=== PATIENT | female | born 1975 | race Caucasian/White ===

== ENCOUNTER 2016-10-16 05:44 | Emergency (ER) | payer OTHER ==
[~2016-10-16] VITALS: Ht 157.5 cm; Wt 71.0 kg
[~2016-10-16 05:44] MED LIST: PREN-88 PO
[2016-10-16 06:38] LABS: BASOPHILS % 0.7 % (0.0-2.0); EOSINOPHILS % 0.9 % (0.0-5.0); HEMATOCRIT. 27.4 % (36.0-48.0); HEMOGLOBIN. 8.8 g/dL (12.0-16.0); LYMPHOCYTES % 35.8 % (20.0-50.0); MEAN CORPUSCULAR HEMOGLOBIN 24.4 pg (28.0-32.0); MEAN CORPUSCULAR VOLUME 76.3 fL (81.0-99.0); MEAN PLATELET VOLUME 10.1 fl (7.4-10.4); MONOCYTES % 10.6 % (2.0-8.0); PLATELET 185 x1000/uL (130-400); RED BLOOD CELL COUNT 3.59 mill/uL (4.2-5.4); RED CELL DISTRIBUTION WIDTH 15.9 % (11.6-14.6)
[2016-10-16 06:43] LABS: PROTHROMBIN TIME 10.3 sec (9.4-11.6)
[2016-10-16 06:53] LABS: CARBON DIOXIDE 26 mEq/L (21-32); CHLORIDE 110 mEq/L (98-107); TROPONIN I < 0.02 ng/mL (0.00-0.04)
[2016-10-16 08:44] VITALS: BP 124/73
== END 2016-10-16 09:26 | disposition home or self-care (01) ==
LOC: ER 05:44
DX: F41.1 Generalized anxiety disorder (principal); F43.0 Acute stress reaction; I10 Essential (primary) hypertension
CPT/HCPCS: 36415; 71010; 80053; 83880; 84484; 85025; 85610; 93005; 99285

== ENCOUNTER 2016-11-08 11:08 | Emergency (ER) | payer MEDICAID, OTHER ==
[~2016-11-08] VITALS: Ht 157.5 cm; Wt 69.0 kg
[2016-11-08 11:21] VITALS: BP 124/81
[2016-11-08] MEDS ORDERED: HYDR10SY11 PO (11:25)
== END 2016-11-08 16:14 | disposition left against medical advice (07) ==
LOC: ER 16:14
DX: R07.9 Chest pain, unspecified (principal); R42 Dizziness and giddiness; Z53.21 Procedure and treatment not carried out due to patient leaving prior to being seen by health care provider
CPT/HCPCS: 93005

== ENCOUNTER 2017-01-09 00:53 | Emergency (ER) | payer OTHER ==
[~2017-01-09] VITALS: Ht 154.9 cm; Wt 81.0 kg
[~2017-01-09 00:53] MED LIST changes: +HYDR10SY11 PO; -PREN-88 PO
[2017-01-09] MEDS: SODIUM CHLORIDE 0.9% 1,000 ML IV ONE (01:38)
[2017-01-09 01:44] LABS: CARBON DIOXIDE 26 mEq/L (21-32); CHLORIDE 106 mEq/L (98-107); TROPONIN I < 0.02 ng/mL (0.00-0.04)
[2017-01-09 01:49] LABS: BASOPHILS % 0.4 % (0.0-2.0); EOSINOPHILS % 0.7 % (0.0-5.0); HEMATOCRIT. 27.3 % (36.0-48.0); HEMOGLOBIN. 8.6 g/dL (12.0-16.0); LYMPHOCYTES % 38.2 % (20.0-50.0); MEAN CORPUSCULAR HEMOGLOBIN 21.2 pg (28.0-32.0); MEAN CORPUSCULAR VOLUME 67.2 fL (81.0-99.0); MEAN PLATELET VOLUME 9.8 fl (7.4-10.4); MONOCYTES % 9.9 % (2.0-8.0); NEUTROPHILS % 50.8 % (40.0-76.0); PLATELET 246 x1000/uL (130-400); RED BLOOD CELL COUNT 4.06 mill/uL (4.2-5.4); RED CELL DISTRIBUTION WIDTH 16.9 % (11.6-14.6)
[2017-01-09 01:53] LABS: HCG SCREEN NEGATIVE
[2017-01-09] MEDS: LORAZEPAM 0.5MG TABLET PO ONE (01:55)
[2017-01-09 02:42] VITALS: BP 130/91
[2017-01-09] MEDS: POTASSIUM CHLORIDE 20MEQ TABLET SR PO ONE (03:21)
[2017-01-10] MEDS ORDERED: LISI2.5T47 PO (11:54)
== END 2017-01-09 03:22 | disposition home or self-care (01) ==
LOC: ER 00:53
DX: R55 Syncope and collapse (principal); F43.29 Adjustment disorder with other symptoms; Z63.4 Disappearance and death of family member; E87.6 Hypokalemia; I10 Essential (primary) hypertension; D64.9 Anemia, unspecified; I44.0 Atrioventricular block, first degree
CPT/HCPCS: 36415; 80048; 82962; 84484; 84703; 85025; 93005; 96360; 99285; J7030

== ENCOUNTER 2017-01-10 11:38 | Emergency (ER) | payer OTHER ==
[~2017-01-10] VITALS: Ht 157.5 cm; Wt 64.0 kg
[2017-01-10] MEDS ORDERED: LISI2.5T47 PO (11:54)
[2017-01-10] MEDS ORDERED: ASPIRIN 81MG TABLET PO STA (12:33)
[2017-01-10 12:59] LABS: BASOPHILS % 0.8 % (0.0-2.0); EOSINOPHILS % 0.5 % (0.0-5.0); HEMATOCRIT. 27.1 % (36.0-48.0); HEMOGLOBIN. 8.5 g/dL (12.0-16.0); LYMPHOCYTES % 32.3 % (20.0-50.0); MEAN CORPUSCULAR HEMOGLOBIN 21.2 pg (28.0-32.0); MEAN CORPUSCULAR VOLUME 67.1 fL (81.0-99.0); NEUTROPHILS % 57.4 % (40.0-76.0); PLATELET 240 x1000/uL (130-400); RED BLOOD CELL COUNT 4.04 mill/uL (4.2-5.4); RED CELL DISTRIBUTION WIDTH 16.6 % (11.6-14.6)
[2017-01-10 13:10] LABS: D-DIMER 0.27 mg/L FEU (<0.50); PARTIAL THROMBOPLASTIN TIME 25.2 sec (23.4-31.0); PROTHROMBIN TIME 10.5 sec (9.4-11.6)
[2017-01-10 13:12] LABS: HCG SCREEN NEGATIVE
[2017-01-10 13:16] LABS: CARBON DIOXIDE 27 mEq/L (21-32); CHLORIDE 108 mEq/L (98-107); TROPONIN I < 0.02 ng/mL (0.00-0.04)
[2017-01-10 13:18] LABS: PLATELET ESTIMATE NORMAL
[2017-01-10 17:40] VITALS: BP 130/60
== END 2017-01-10 17:42 | disposition home or self-care (01) ==
LOC: ER 11:43 → ENRESERV 15:35 → CANRESERV 15:35 → CANBEDREQ 17:32 → ER 17:42
DX: R07.9 Chest pain, unspecified (principal); I10 Essential (primary) hypertension; R42 Dizziness and giddiness; R06.02 Shortness of breath
CPT/HCPCS: 36415; 71010; 80048; 84484; 84703; 85025; 85379; 85610; 85730; 93005; 99285; Z7610

== ENCOUNTER 2017-03-01 22:28 | Emergency (ER) | payer OTHER ==
[~2017-03-01 22:28] MED LIST changes: +LISI2.5T47 PO
== END 2017-03-02 00:10 | disposition left against medical advice (07) ==
LOC: ER 03-02 00:05
DX: Z53.21 Procedure and treatment not carried out due to patient leaving prior to being seen by health care provider (principal)

== ENCOUNTER 2021-08-26 01:24 | Emergency (ER) | payer MEDICAID, OTHER ==
[~2021-08-26] VITALS: Ht 165.1 cm; Wt 61.0 kg
[2021-08-26] MEDS ORDERED: LEVETIRACETAM 500MG PREMIX 100 ML IV ONE (02:30)
[2021-08-26 04:04] LABS: BASOPHILS % 0.5 % (0.0-2.0); HEMOGLOBIN. 12.1 g/dL (12.0-16.0); LYMPHOCYTES % 25.2 % (20.0-50.0); MEAN CORPUSCULAR VOLUME 86.5 fL (81.0-99.0); MEAN PLATELET VOLUME 11.5 fl (7.4-10.4); MONOCYTES % 10.3 % (2.0-8.0); PLATELET 145 x1000/uL (130-400); RED BLOOD CELL COUNT 4.16 mill/uL (4.2-5.4); RED CELL DISTRIBUTION WIDTH 17.3 % (11.6-14.6)
[2021-08-26 04:14] LABS: CHLORIDE 106 mEq/L (98-107)
[2021-08-26 05:53] VITALS: BP 126/83
== END 2021-08-26 06:12 | disposition home or self-care (01) ==
LOC: ER 01:24
DX: R56.9 Unspecified convulsions (principal); M79.18 Myalgia, other site; I10 Essential (primary) hypertension; Z98.51 Tubal ligation status
CPT/HCPCS: 36415; 70450; 80053; 85025; 96365; 99284; J1953; Z7610